=== PATIENT | female | born 1970 | race Caucasian/White ===

== ENCOUNTER 2020-05-08 15:12 | Observation (INO) | payer BC ==
[~2020-05-08] VITALS: Ht 170.2 cm; Wt 60.0 kg
[2020-05-08] MEDS ORDERED: GABA600T7 PO (16:56)
[2020-05-08] MEDS ORDERED: DIPH25TA65 PO (16:56)
[2020-05-08] MEDS ORDERED: FEXO60TA24 PO (16:56)
[2020-05-08] MEDS ORDERED: TRAZ-175 PO (16:56)
--- NOTE | 2020-05-08 17:05 | NUR ---
PT RESTING CALMLY IN BED AT THIS TIME. NO C/O PAIN. PT AWARE SHE GOING TO BE ADMITTED. CALL LIGHT WITHIN REACH.
--- NOTE | 2020-05-08 18:00 | NUR ---
PT WAS OKAYED TO HAVE WATER. PT ABLE TO SWALLOW WITHOUT DIFFICULTY. PT VSS. PT REPOSITIONED IN BED FOR COMFORT. WILL CONTINUE TO MONITOR.
[2020-05-08] MEDS ORDERED: ONDANSETRON ODT 4 MG PO PRN (18:30)
[2020-05-08] MEDS ORDERED: TRAZODONE 100MG TABLET PO PRN (18:30)
[2020-05-08] MEDS ORDERED: LORATADINE 10 MG TABLET PO PRN (18:30)
[2020-05-08] MEDS ORDERED: TRAZODONE 50MG TABLET PO PRN (18:30)
[2020-05-08] MEDS ORDERED: PROMETHAZINE 25 MG/ML, 1ML IM PRN (18:30)
[2020-05-08] MEDS ORDERED: POLYETHYLENE GLYCOL 17 GM PACKET PO PRN (18:30)
[2020-05-08] MEDS ORDERED: METHOCARBAMOL 500 MG TABLET PO PRN (18:30)
[2020-05-08] MEDS ORDERED: MELATONIN 5 MG TABLET PO PRN (18:30)
[2020-05-08] MEDS ORDERED: ACETAMINOPHEN 325 MG TABLET PO PRN (18:30)
--- NOTE | 2020-05-08 19:05 | NUR ---
REPORT FROM NASREEN FLANAGAN
--- NOTE | 2020-05-08 19:28 | NUR ---
FIRST CONTACT WITH PT. PT SIDE LYING IN RNEY WITH EYES CLOSED. EVEN REGULAR RESPIRATIONS NOTED.
[2020-05-08 20:37] VITALS: BP 104/71
[2020-05-08] MEDS: ENOXAPARIN 40 MG/0.4 ML SQ SCH (21:24)
[2020-05-08] MEDS: KETOROLAC 30 MG/1 ML IV SCH (21:24)
[2020-05-08] MEDS: OXYcodone IR 5MG TABLET PO PRN (21:24)
[2020-05-08] MEDS: GABAPENTIN 300 MG CAPSULE PO SCH (21:24)
[2020-05-09] MEDS: OXYcodone IR 5MG TABLET PO PRN ×3 (01:17→18:02)
[2020-05-09 03:19] VITALS: BP 116/68
[2020-05-09] MEDS: KETOROLAC 30 MG/1 ML IV SCH ×4 (03:19→21:24)
[2020-05-09 08:09] VITALS: BP 94/58
[2020-05-09] MEDS: GABAPENTIN 300 MG CAPSULE PO SCH ×2 (08:13→21:24)
[2020-05-09] MEDS: SENNA/DOCUSATE TABLET PO SCH (08:13)
[2020-05-09] MEDS: TIZANIDINE 4MG TABLET PO SCH ×3 (08:13→23:58)
[2020-05-09 13:29] VITALS: BP 91/59
[2020-05-09] MEDS: ENOXAPARIN 40 MG/0.4 ML SQ SCH (18:02)
[2020-05-09 20:44] VITALS: BP 80/51
[2020-05-10] MEDS: OXYcodone IR 5MG TABLET PO PRN ×2 (01:02→15:00)
[2020-05-10 04:00] VITALS: BP 91/68
[2020-05-10] MEDS: KETOROLAC 30 MG/1 ML IV SCH ×2 (04:45→11:55)
[2020-05-10 07:30] VITALS: BP 93/61
[2020-05-10] MEDS: SENNA/DOCUSATE TABLET PO SCH (09:00)
[2020-05-10] MEDS ORDERED: TIZA4TAB2 PO (10:10)
[2020-05-10] MEDS ORDERED: KETO10TA PO (10:10)
[2020-05-10] MEDS ORDERED: OXYC5TAB3 PO (10:10)
[2020-05-10] MEDS ORDERED: GABA300C PO (10:10)
[2020-05-10] MEDS: TIZANIDINE 4MG TABLET PO SCH (11:54)
[2020-05-10] MEDS: GABAPENTIN 300 MG CAPSULE PO SCH (11:55)
== END 2020-05-10 14:59 | disposition home or self-care (01) ==
LOC: ED 16:48 → INTOOBSV 16:54 → EDIP 16:54 → SUATTDRO 16:54 → ED 17:20 → 3WST 20:30 → DCLOUNGE 05-10 14:45
PROVIDERS: ADMIT Internal Medicine; ATTEND Internal Medicine
DX: M54.9 Dorsalgia, unspecified (principal); G89.29 Other chronic pain; J30.9 Allergic rhinitis, unspecified; F51.04 Psychophysiologic insomnia; M51.35 Other intervertebral disc degeneration, thoracolumbar region; M54.16 Radiculopathy, lumbar region; R53.2 Functional quadriplegia; R20.2 Paresthesia of skin; M79.605 Pain in left leg; M79.604 Pain in right leg; M41.9 Scoliosis, unspecified; Z79.891 Long term (current) use of opiate analgesic; Z79.899 Other long term (current) drug therapy; Z90.710 Acquired absence of both cervix and uterus
CPT/HCPCS: 72146; 72148; 96372; 96374; 96376; 97162; 99284; G0378; J1650; J1885; Q0162